=== PATIENT | male | born 1980 | race African-American/Black ===

== ENCOUNTER 2020-10-31 11:25 | Emergency (ER) | payer MEDICAID, OTHER ==
[~2020-10-31] VITALS: Ht 182.9 cm; Wt 106.6 kg
[2020-10-31 11:50] VITALS: BP 140/91
== END 2020-10-31 13:15 | disposition left against medical advice (07) ==
LOC: ER 11:25
DX: R45.850 Homicidal ideations (principal); Z53.21 Procedure and treatment not carried out due to patient leaving prior to being seen by health care provider